=== PATIENT | female | born 1970 | race Caucasian/White ===

== ENCOUNTER 2023-01-19 09:47 | Inpatient (IN) | payer OTHER ==
[~2023-01-19] VITALS: Ht 157.5 cm; Wt 104.3 kg
[2023-01-19] MEDS ORDERED: IBUP-1957 PO (12:25)
[2023-01-19] MEDS ORDERED: METH1ADH6 TP (12:25)
[2023-01-19] MEDS ORDERED: ATOR10TA PO (12:25)
[2023-01-19] MEDS ORDERED: PHEN64.8 PO (12:25)
[2023-01-19] MEDS ORDERED: IBUPROFEN 800 MG TABLET PO PRN (14:30)
[2023-01-19] MEDS ORDERED: HYDROCODONE/APAP 5/325MG TABLET PO PRN (14:30)
[2023-01-19] MEDS ORDERED: MAGNESIUM HYDROXIDE 30 ML UDC PO PRN (14:30)
[2023-01-19] MEDS ORDERED: IV NS 0.9% 1,000 ML IV PRN (14:30)
[2023-01-19] MEDS ORDERED: ZOLPIDEM TARTRATE 5 MG TABLET PO PRN (14:30)
[2023-01-19] MEDS ORDERED: ONDANSETRON HCL/PF 4 MG/2 ML VIAL IVP PRN (14:30)
[2023-01-19] MEDS ORDERED: Z GUARD REMEDY 4 OZ OINT TP PRN (14:30)
[2023-01-19] MEDS ORDERED: ACETAMINOPHEN 325 MG TABLET PO PRN (14:30)
[2023-01-19] MEDS ORDERED: MAG HYDROX/AL HYDROX/SIMETH 30 ML UDC PO PRN (14:30)
[2023-01-19 14:50] VITALS: BP 123/84; TEMP 98.2; O2SAT 94
[2023-01-19] MEDS ORDERED: ATORVASTATIN 10 MG TABLET PO SCH (18:00)
[2023-01-19] MEDS: IBUPROFEN 400 MG TABLET PO PRN (18:29)
[2023-01-19] MEDS ORDERED: MORPHINE SULFATE INJ 2 MG/ML DISP.SYRIN IV PRN (18:30)
[2023-01-19 20:00] VITALS: BP 125/91; TEMP 98.9; O2SAT 94
[2023-01-19] MEDS: PHENOBARBITAL 30 MG TABLET PO SCH (21:35)
[2023-01-19] MEDS: ATORVASTATIN 10 MG TABLET PO SCH (21:36)
[2023-01-19] MEDS: ENOXAPARIN SODIUM 40 MG/0.4 ML DISP.SYRIN SQ SCH (21:43)
[2023-01-20 04:00] VITALS: BP 100/72; TEMP 98.1; O2SAT 94
[2023-01-20 07:21] LABS: BASOPHILS % (AUTO) 0.5 % (0.0-2.0); EOSINOPHILS # (AUTO) 0.2 K/uL (0.0-0.7); EOSINOPHILS % (AUTO) 2.7 % (0.0-6.0); HEMATOCRIT 30 % (33-45); HEMOGLOBIN 9.7 g/dL (11.5-14.8); LYMPHOCYTES # (AUTO) 1.1 K/uL (0.8-4.8); LYMPHOCYTES % (AUTO) 14.1 % (20.0-44.0); MEAN CORPUSCULAR HEMOGLOBIN 28 PG (26.0-33.0); MEAN CORPUSCULAR HGB CONC 33 g/dl (31.0-36.0); MEAN CORPUSCULAR VOLUME 84 fL (82-100); MONOCYTES # (AUTO) 0.5 K/uL (0.1-1.30); MONOCYTES % (AUTO) 5.8 % (2.0-12.0); NEUTROPHILS % (AUTO) 76.9 % (43.0-81.0); PLATELET COUNT (AUTO) 206 K/uL (150-450); RED BLOOD CELL COUNT(AUTO) 3.53 MIL/uL (4.0-5.2); RED CELL DISTRIBUTION WIDTH 16.9 % (11.5-15.0); WHITE BLOOD COUNT (AUTO) 7.8 K/uL (4.3-11.0)
[2023-01-20 10:00] VITALS: BP 100/72; TEMP 98.1; O2SAT 94
[2023-01-20 10:47] LABS: CALCIUM, SERUM 9.4 mg/dL (8.5-10.1); CREATININE 0.9 mg/dL (0.6-1.3); PHOSPHORUS 3.1 mg/dL (2.5-4.9); POTASSIUM 3.4 mmol/L (3.5-5.1)
[2023-01-20 11:09] LABS: MAGNESIUM 1.2 mg/dL (1.8-2.4)
[2023-01-20 12:00] VITALS: BP 100/72; TEMP 98.1; O2SAT 94
[2023-01-20] MEDS: Magnesium 1GM/D5W 100ML PREMIX 100 ML IV SCH ×2 (12:02→12:44)
[2023-01-20] MEDS: IBUPROFEN 400 MG TABLET PO PRN (13:02)
[2023-01-20 20:00] VITALS: BP 125/94; TEMP 98; O2SAT 92
[2023-01-20] MEDS: ENOXAPARIN SODIUM 40 MG/0.4 ML DISP.SYRIN SQ SCH (20:15)
[2023-01-20] MEDS: ATORVASTATIN 10 MG TABLET PO SCH (21:04)
[2023-01-20] MEDS: PHENOBARBITAL 30 MG TABLET PO SCH (21:04)
== END 2023-01-20 21:08 | disposition short-term general hospital (02) | DRG 543 ==
LOC: ER 10:07 → MEDSG1 13:55
PROVIDERS: ADMIT Internal Medicine; ATTEND Internal Medicine
PROC: 05H533Z Insertion of Infusion Device into Right Subclavian Vein, Percutaneous Approach (ICD-10-PCS; principal; 2023-01-19)
PROC: B546ZZA Ultrasonography of Right Subclavian Vein, Guidance (ICD-10-PCS; 2023-01-19)
DX: M48.56XA Collapsed vertebra, not elsewhere classified, lumbar region, initial encounter for fracture (principal); Z68.41 Body mass index [BMI] 40.0-44.9, adult; E66.9 Obesity, unspecified; E78.5 Hyperlipidemia, unspecified; G40.909 Epilepsy, unspecified, not intractable, without status epilepticus; G89.29 Other chronic pain; Z85.42 Personal history of malignant neoplasm of other parts of uterus; Z85.43 Personal history of malignant neoplasm of ovary; M54.89 Other dorsalgia; Z20.822 Contact with and (suspected) exposure to COVID-19; W19.XXXA Unspecified fall, initial encounter; Y93.9 Activity, unspecified; Y92.89 Other specified places as the place of occurrence of the external cause
CPT/HCPCS: 36415; 72128-TC; 72131-TC; 80048-TC; 83735-TC; 84100-TC; 85025-TC; A4223; G0378; J1650; J3475; J3490; J7030